=== PATIENT | female | born 1990 | race Caucasian/White ===

== ENCOUNTER 2021-07-13 01:27 | Inpatient (IN) ==
[2021-07-13 03:21] LABS: VBG HCO3 23 mEq/L (21-27); VBG PCO2 35 mmHg (41-51); VBG PH 7.43 pH Units (7.32-7.42); VBG PO2 151 mmHg (25-50)
[2021-07-13 03:45] LABS: Acetaminophen < 10 mcg/mL (10-20); Salicylate < 2.5 mg/dL (15.0-30.0)
[2021-07-13 05:11] LABS: Bacteria,Urine Few per hpf (None-Few); Bilirubin,Urine Negative (Negative); Blood,Urine Negative (Negative); Clarity,Urine Turbid (Clear); Color,Urine Yellow (Yellow); Glucose,Urine (UA) Normal (Normal); Hyaline Casts,Urine Few per lpf (None Seen); Ketones,Urine 80 mg/dL (Negative); Leukocyte Esterase,Urine Negative (Negative); Mucus,Urine Few per lpf (None-Few); Nitrite,Urine Negative (Negative); PH,Urine 6.5 pH Units (5.0-8.0); Protein,Urine 70 mg/dL (Neg-Trace); Specific Gravity,Urine > 1.030 (1.010-1.025); Squamous Epithelial Cell,Urine Moderate per hpf (None-Few); WBC,Urine 0-3 per hpf (0-3)
[2021-07-13 05:20] LABS: Amphetamine Screen,Urine Negative ng/mL (Cutoff=1000); Barbiturate Screen,Urine Negative ng/mL (Cutoff=200); Benzodiazepines Screen,Urine Negative ng/mL (Cutoff=200); Cannabinoid Screen,Urine Positive ng/mL (Cutoff = 50); Cocaine Screen,Urine Negative ng/mL (Cutoff= 300); Opiate Screen,Urine Negative ng/mL (Cutoff=300); Phencyclidine Screen,Urine Negative ng/mL (Cutoff=25)
[2021-07-13 09:42] LABS: Influenza A PCR Negative (Negative); Influenza B PCR Negative (Negative); Resp. Syncytial Virus PCR Negative (Negative); SARS-CoV-2 by PCR (In House) Negative (Negative)
[2021-07-13] MEDS ORDERED: Haloperidol Lactate 5 MG/ML VIAL IM PRN (10:29)
[2021-07-13] MEDS ORDERED: *HR* LORazepam 2 MG/ML VIAL IM PRN (10:29)
[2021-07-13] MEDS ORDERED: Acetaminophen 325 MG TABLET PO PRN (10:29)
[2021-07-13] MEDS ORDERED: haloperidoL 5 MG TABLET PO PRN (10:29)
[2021-07-13] MEDS ORDERED: hydrOXYzine pamoate 25 MG CAPSULE PO PRN (10:29)
[2021-07-13] MEDS ORDERED: *HR* LORazepam 1 MG TABLET PO PRN (10:29)
[2021-07-13] MEDS ORDERED: MOM Conc 10 ML UD.LIQ PO PRN (10:29)
[2021-07-13] MEDS ORDERED: Td (TENIVAC) Vaccine 0.5 ML VIAL IM ONE (11:46)
[2021-07-13] MEDS ORDERED: lamoTRIgine 100 MG TABLET PO SCH (21:00)
[2021-07-13] MEDS: Divalproex (12 HR) 250 MG TABLET PO SCH (21:05)
[2021-07-13] MEDS: QUEtiapine Fumarate 25 MG TABLET PO PRN (21:08)
[2021-07-13] MEDS: OLANZapine 5 MG TAB.RAPDIS PO SCH (21:09)
[2021-07-13] MEDS: Melatonin 3 MG TABLET PO SCH (21:36)
[2021-07-14] MEDS: Divalproex (12 HR) 250 MG TABLET PO SCH ×2 (09:28→21:28)
[2021-07-14] MEDS: Melatonin 3 MG TABLET PO SCH (21:27)
[2021-07-14] MEDS: QUEtiapine Fumarate 25 MG TABLET PO PRN (21:27)
[2021-07-14] MEDS: Mag Hydrox/Al Hydrox/Simeth 30 ML UDC PO PRN (21:28)
[2021-07-14] MEDS: OLANZapine 5 MG TAB.RAPDIS PO SCH (21:28)
[2021-07-15] MEDS: Divalproex (12 HR) 250 MG TABLET PO SCH (09:42)
[2021-07-15] MEDS: Mag Hydrox/Al Hydrox/Simeth 30 ML UDC PO PRN (09:45)
[2021-07-15] MEDS ORDERED: Neosporin OINT 15 GM TUBE TP PRN (10:04)
[2021-07-15 10:53] VITALS: BP 139/92; PULSE 100; TEMP 97.8; O2SAT 97
[2021-07-15] MEDS ORDERED: FLU Vac QV 21-22 (6Month+)/PF 0.5 ML SYRINGE IM ONE (11:41)
== END 2021-07-15 17:30 | disposition home or self-care (01) | DRG 817 ==
LOC: EMEROOARM 01:27 → 1ANU 10:04 → INTOOBSV 10:04 → 1ANU 11:05
PROVIDERS: ADMIT Psychiatry & Neurology Psychiatry; ATTEND Psychiatry & Neurology Psychiatry